=== PATIENT | male | born 2005 | race Caucasian/White ===

== ENCOUNTER 2025-03-01 21:06 | Emergency (ER) | payer OTHER, SELFPAY ==
[2025-03-01 21:07] VITALS: BP 143/90; PULSE 100; RESP 18; TEMP 36.6; O2SAT 97; BMI 23.8
--- NOTE | 2025-03-01 21:32 | EX.ED.GENINJ ---
HPI History of Present Illness Chief Complaint: Laceration Detail of Chief Complaint: Left upper eyelid laceration less than an hour ago. Informant: patient Onset/Context/Timing Onset: Today Mechanism/Context: Blunt Injury Location: Left upper eyelid. Current Severity: Mild Maximum Severity: Mild Associated Symptoms Associated Symptoms: Negative for Parasthesias, Weakness, Loss of function, Inability to ambulate, Loss of consciousness or Amnesia Narrative Narrative: 19-year-old male andres to college at [employer]. Was playing basketball accidentally got head butted in his left upper eye lid and has about a 1 inch laceration. This occurred less than an hour ago. No LOC. Tetanus is up-to-date. Denies any other complaints. Tetanus Immunization: 5-10 years Prior similar symptoms: No Recent Illness/Hospitalization: No [facility] Medical History Asthma Allergy/AdvReac Type Severity Reaction Status Date / Time No Known Allergies Allergy Verified 03/01/25 21:09 Social History Smoking Status: Never smoker ROS ROS ED ROS Narrative Denies recent illness. He got anxious due to the laceration and threw up in the ER. Constitutional Constitutional ED: Denies chills Eyes Eyes: Denies blurry vision ENT ENT ED: Denies ear pain Cardiovascular Cardiovascular: Denies chest pain Respiratory/Chest Respiratory/Chest: Denies cough Gastrointestinal Gastrointestinal: Reports nausea and vomiting; Denies abdominal pain Genitourinary Genitourinary ED: Denies dysuria or hematuria Musculoskeletal Musculoskeletal: Denies arthralgias Integumentary Denies abscess Neurologic Neurologic: Denies headache(s) Psychiatric Psychiatric: Denies anxiety or depression Endocrine Endocrinology: Denies cold intolerance Hematologic/Lymphatic Hematologic/Lymphatic: Denies easy bleeding Allergic/Immunologic Allergic/Immunologic ED: Denies mouth swelling, tongue swelling or urticaria EXAM Physical Exam Narrative Exam Narrative: 19-year-old male sitting upright in bed vital signs stable afebrile. No acute distress. Accompanied by another male. H EENT exam pupils round react light. Active motions are intact. Left upper eyelid is mildly swollen has about 1 to 2 inch laceration on the repaired. Otherwise no other facial trauma. Dentition intact. Scalp nontender. C-spine nontender. Back nontender. Lungs clear to auscultation. Heart regular rhythm rate about 100 no murmur. Chest wall ribs nontender. Abdomen soft nontender. 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 Dorsi plantarflexion intact. Neurologic exam normal. GCS 15. Const Vital Signs: 03/01/25 21:07 Temperature 97.8 F Temperature Source Temporal Pulse Rate 100 Respiratory Rate 18 Blood Pressure 143/90 H Blood Pressure Mean 107 Pulse Ox 97 Oxygen Delivery Method Room Air PROC Procedures Lacerations Left upper eyelid 1.5 inch laceration with Dermabond repair.: Length: 1.5 in Depth: Sub Q Shape: Linear Laceration repair: Irrigated Comment: Discussed with patient. He wanted Dermabond. MDM MDM MDM Narrative Medical decision making narrative: 19-year-old male left upper eyelid laceration needs repaired. Tetanus is up-to-date. He and I discussed treatment options. I told him we could suture it or do Dermabond and Steri-Strips he did not want to be sutured and preferred Dermabond and Steri-Strips. He called his father and his tetanus is up-to-date. Repeat exam patient doing well at 9:50 PM. Left upper lid laceration was dermabonded again per his request. Proper hemostasis wound closure obtained. Area was cleaned which saline and explored. He was given wound care instructions. Discharge Plan Triage Chief Complaint: Laceration ED Provider: Elie Chavez Dx/Rx/DC Orders Clinical Impression: Laceration of left upper eyelid Instructions: ED Laceration, Face: Skin Glue Primary Care Provider: [facility] Doctor,Out of Referrals: NOT,DEFINED [Non-Staff, None] Activity Restrictions/Additional Instructions: Ice to the area. Motrin and Tylenol for pain. You can take the Steri-Strips off in 1 week. Print Language: Czech Disposition Disposition: Home, Self Care
[2025-03-01 21:52] VITALS: BP 108/66; PULSE 57; RESP 18; TEMP 36.8; O2SAT 100
== END 2025-03-01 21:53 | disposition home or self-care (01) ==
PROVIDERS: Emergency Provider Emergency Medicine; Visit Provider Emergency Medicine
DX: S01.112A Laceration without foreign body of left eyelid and periocular area, initial encounter (principal); J45.909 Unspecified asthma, uncomplicated; W50.0XXA Accidental hit or strike by another person, initial encounter; Y93.67 Activity, basketball
CPT/HCPCS: 12011; 99283